=== PATIENT | female | born 1930 | race Caucasian/White ===

== ENCOUNTER → 2021-01-14 | Outpatient (CLI) | payer MEDICARE, BC ==
[~2021-01-14] MED LIST: ALLOPURINOL300 MG PO; AMBIEN10 MG PO; AUGMENTIN 875-1 EACH PO; DOXYCYCLINE HY100 M2 PO; ELIQUIS 2.5 MG2.5 MG PO; HYDROCODON-ACE1 EAC6 PO; MACROBID 100 M100 MG PO; PEPCID40 MG PO; PERCOCET 10-321 EACH PO; PRESERVISION A1 EAC1 PO; VITAMIN A10000 UNI1 PO; VITAMIN D 40400 UNIT PO; ZOFRAN4 MG PO
== END ==
LOC: EXRD 13:57
DX: M25.562 Pain in left knee (principal); M25.561 Pain in right knee; G89.29 Other chronic pain; M75.101 Unspecified rotator cuff tear or rupture of right shoulder, not specified as traumatic; M54.2 Cervicalgia; M54.5 Low back pain; M17.0 Bilateral primary osteoarthritis of knee; M19.012 Primary osteoarthritis, left shoulder; M19.011 Primary osteoarthritis, right shoulder; M47.812 Spondylosis without myelopathy or radiculopathy, cervical region; M48.02 Spinal stenosis, cervical region; M47.816 Spondylosis without myelopathy or radiculopathy, lumbar region; M47.814 Spondylosis without myelopathy or radiculopathy, thoracic region
CPT/HCPCS: 72040; 72070; 72100; 73030; 73560

== ENCOUNTER → 2021-02-24 | Outpatient (CLI) | payer MEDICARE, OTHER | LOC: ECHO 12:00 → HEART 5 02-25 08:00 | DX: Z01.810 Encounter for preprocedural cardiovascular examination (principal); I07.1 Rheumatic tricuspid insufficiency; I27.20 Pulmonary hypertension, unspecified | CPT/HCPCS: ECHO; 93306 ==

== ENCOUNTER → 2021-02-25 | Outpatient (CLI) | payer MEDICARE, OTHER | LOC: HEART 5 08:20 | DX: Z01.810 Encounter for preprocedural cardiovascular examination (principal) | CPT/HCPCS: 78452; A9502; J2785 ==

== ENCOUNTER → 2021-03-02 | Outpatient (CLI) | payer MEDICARE, BC | LOC: KOH-I 09:00 | DX: R93.89 Abnormal findings on diagnostic imaging of other specified body structures (principal); Z87.891 Personal history of nicotine dependence | CPT/HCPCS: 71250 ==

== ENCOUNTER → 2021-05-12 | Outpatient (CLI) | payer MEDICARE, BC ==
[2021-05-12 12:59] LABS: HEMOGLOBIN 14.2 gm/dl (12.3-15.3); RED BLOOD COUNT 4.93 M/UL (4.00-5.10); WHITE BLOOD COUNT 7.2 K/UL (4.5-11.0)
[2021-05-12 13:21] LABS: BUN/CREATININE RATIO 26 (0-10)
== END ==
LOC: OPSV2 05-11 12:00 → EDSTATUS 11:30 → OPSV2 11:30
PROVIDERS: Orthopaedic Surgery
DX: Z01.818 Encounter for other preprocedural examination (principal); M17.11 Unilateral primary osteoarthritis, right knee
CPT/HCPCS: 36415; 71046; 80048; 85025; 87081; 93005

== ENCOUNTER → 2021-05-24 | Outpatient (CLI) | payer MEDICARE, BC ==
[2021-05-24 17:09] LABS: BUN/CREATININE RATIO 17 (0-10)
== END ==
LOC: LAB 15:30 → LBRF 15:30
PROVIDERS: Orthopaedic Surgery
DX: Z01.812 Encounter for preprocedural laboratory examination (principal); M17.11 Unilateral primary osteoarthritis, right knee
CPT/HCPCS: 80048; 86850; 86900; 86901

== ENCOUNTER 2021-05-25 06:13 | Inpatient (IN) | payer MEDICARE, BC ==
[~2021-05-25] VITALS: Ht 165.1 cm; Wt 75.3 kg
[~2021-05-25 06:13] MED LIST changes: -AUGMENTIN 875-1 EACH PO; -DOXYCYCLINE HY100 M2 PO; -ELIQUIS 2.5 MG2.5 MG PO; -MACROBID 100 M100 MG PO; -PERCOCET 10-321 EACH PO; -PRESERVISION A1 EAC1 PO
[2021-05-25] MEDS ORDERED: PRESERVISION A1 EAC1 PO (12:09)
[2021-05-25] MEDS ORDERED: MACROBID 100 M100 MG PO (12:21)
[2021-05-26 04:32] LABS: HEMOGLOBIN 10.5 gm/dl (12.3-15.3); RED BLOOD COUNT 3.71 M/UL (4.00-5.10); WHITE BLOOD COUNT 8.9 K/UL (4.5-11.0)
[2021-05-26 04:51] LABS: BUN/CREATININE RATIO 19 (0-10)
[2021-05-27 04:05] LABS: RED BLOOD COUNT 3.83 M/UL (4.00-5.10); WHITE BLOOD COUNT 8.1 K/UL (4.5-11.0)
[2021-05-27 04:44] LABS: BUN/CREATININE RATIO 12 (0-10)
[2021-05-27 19:48] LABS: CORONAVIRUS HKU1 Not Detected (Not Detectd); CORONAVIRUS NL63 Not Detected (Not Detectd); CORONAVIRUS OC43 Not Detected (Not Detectd); CORONOAVIRUS 229E Not Detected (Not Detectd); HUMAN METAPNEUMOVIRUS Not Detected (Not Detectd); HUMAN RHINOVIRUS/ENTEROVIRUS Not Detected (Not Detectd); INFLUENZA A Not Detected (Not Detectd); INFLUENZA B Not Detected (Not Detectd); PARAINFLUENZA VIRUS 1 Not Detected (Not Detectd); PARAINFLUENZA VIRUS 2 Not Detected (Not Detectd); PARAINFLUENZA VIRUS 3 Not Detected (Not Detectd)
[2021-05-27 19:49] LABS: BORDETELLA PARAPERTUSSIS Not Detected (Not Detectd); BORDETELLA PERTUSSIS Not Detected (Not Detectd); CHLAMYDIA PNEUMONIAE Not Detected (Not Detectd); MYCOPLASMA PNEUMONIAE Not Detected (Not Detectd); PARAINFLUENZA VIRUS 4 Not Detected (Not Detectd); RESPIRATORY SYNCYTIAL VIRUS Not Detected (Not Detectd)
[2021-05-27 21:24] LABS: SARS-CoV-2 NOT DETECTED (Not Detectd)
[2021-05-28 06:29] LABS: HEMOGLOBIN 11.5 gm/dl (12.3-15.3); RED BLOOD COUNT 3.94 M/UL (4.00-5.10); WHITE BLOOD COUNT 8.9 K/UL (4.5-11.0)
[2021-05-28 06:54] LABS: BUN/CREATININE RATIO 12 (0-10)
[2021-05-28] MEDS ORDERED: ELIQUIS 2.5 MG2.5 MG PO (11:25)
[2021-05-28] MEDS ORDERED: PERCOCET 10-321 EACH PO (11:25)
[2021-05-28] MEDS ORDERED: DOXYCYCLINE HY100 M2 PO (11:38)
[2021-05-28] MEDS ORDERED: AUGMENTIN 875-1 EACH PO (11:38)
== END 2021-05-28 15:51 | DRG 469 ==
LOC: OR 06:13 → EDSTATUS 08:15 → M/S 08:27 → OR 11:24 → M/S 05-28 15:51
PROVIDERS: ADMIT Orthopaedic Surgery
PROC: 0SRC0J9 Replacement of Right Knee Joint with Synthetic Substitute, Cemented, Open Approach (ICD-10-PCS; principal; 2021-05-25 08:15)
DX: M17.11 Unilateral primary osteoarthritis, right knee (principal); J18.9 Pneumonia, unspecified organism; N39.0 Urinary tract infection, site not specified; K21.9 Gastro-esophageal reflux disease without esophagitis; E78.5 Hyperlipidemia, unspecified; F41.9 Anxiety disorder, unspecified; Z96.642 Presence of left artificial hip joint; Z96.619 Presence of unspecified artificial shoulder joint; K57.90 Diverticulosis of intestine, part unspecified, without perforation or abscess without bleeding; M10.9 Gout, unspecified; K44.9 Diaphragmatic hernia without obstruction or gangrene; D64.89 Other specified anemias; R32 Unspecified urinary incontinence; Z51.11 Encounter for antineoplastic chemotherapy; Z85.9 Personal history of malignant neoplasm, unspecified; Z82.5 Family history of asthma and other chronic lower respiratory diseases; Z82.61 Family history of arthritis; Z90.49 Acquired absence of other specified parts of digestive tract; Z90.710 Acquired absence of both cervix and uterus; Z88.6 Allergy status to analgesic agent; Z88.8 Allergy status to other drugs, medicaments and biological substances; Z85.038 Personal history of other malignant neoplasm of large intestine; Z79.01 Long term (current) use of anticoagulants
CPT/HCPCS: 36415; 71046; 73560; 80048; 81001; 85027; 86850; 86900; 86901; 87210; 87633; 97110-GP-CQ; 97116-GP-CQ; 97161; 97166; 97530-GP-CQ; 97535; C1776; J0171; J0592; J0690; J1100; J1200; J1335; J2270; J2370; J2400; J2405; J2704; J2795; J3370; J3475; J7030; J7120